=== PATIENT | female | born 1995 | race African-American/Black ===

== ENCOUNTER 2016-09-14 14:27 | Emergency (ER) | payer OTHER ==
[~2016-09-14] VITALS: Ht 165.1 cm; Wt 63.5 kg
[2016-09-14 15:38] LABS: APPEARANCE,URINE CLEAR; KETONES,URINE NEGATIVE (NEGATIVE); LEUKOCYTE ESTERASE ,URINE 3+ (NEGATIVE); NITRITE,URINE NEGATIVE (NEGATIVE); PH,URINE 7 (4.5-8.0); PROTEIN,URINE 1+ (NEGATIVE); UROBILINOGEN,URINE 1 MG/DL (0.0-1.0)
[2016-09-14 15:40] LABS: BASOPHILS % (AUTO) 0.7 % (0.0-2.0); EOSINOPHILS % (AUTO) 2.2 % (0.0-3.0); LYMPHOCYTES % (AUTO) 16.7 % (20.0-45.0); MEAN CORPUSCULAR HEMOGLOBIN 28.5 PG (27.0-31.0); MEAN CORPUSCULAR HGB CONC 31.7 G/DL (32.0-36.0); MEAN CORPUSCULAR VOLUME 90 FL (80-99); MEAN PLATELET VOLUME 8.8 FL (6.5-10.1); MONOCYTES % (AUTO) 6.5 % (1.0-10.0); NEUTROPHILS % (AUTO) 73.9 % (45.0-75.0); PLATELET COUNT 243 K/UL (150-450); RED BLOOD COUNT 4.39 M/UL (4.20-5.40); RED CELL DISTRIBUTION WIDTH 13.3 % (11.6-14.8); WHITE BLOOD COUNT 8.9 K/UL (4.8-10.8)
[2016-09-14 15:56] LABS: BACTERIA,URINE MODERATE /HPF; SQUAMOUS EPITHELIAL CELL,UR FEW /LPF (NONE/OCC)
[2016-09-14 15:57] LABS: ALANINE AMINOTRANSFERASE 15 U/L (3-33); ALBUMIN/GLOBULIN RATIO 1.1 (1.0-2.7); ANION GAP 16 (5-15); ASPARTATE AMINO TRANSFERASE 23 U/L (5-40); CALCIUM 9.6 mg/dL (8.6-10.2); CARBON DIOXIDE 25 mEQ/L (20-30); CHLORIDE 97 mEQ/L (98-107); CREATININE 0.9 mg/dL (0.5-0.9); GLOMERULAR FILTRATION RATE > 60 mL/min (>60); HEMOLYSIS 2; LIPASE 17 U/L (< 60); POTASSIUM 3.5 mEQ/L (3.4-4.9); SODIUM 138 mEQ/L (135-145); TOTAL PROTEIN 8.1 g/dL (6.6-8.7)
[2016-09-14] MEDS ORDERED: KEFLEX500 MG ORAL (16:31)
[2016-09-14] MEDS ORDERED: TYLENOL EXTRA500 MG ORAL (16:31)
[2016-09-14 16:40] VITALS: BP 122/80
--- NOTE | 2016-09-14 17:45 | Emergency Room Report ---
History of Present Illness General Chief Complaint: Abdominal Pain Source: Patient Present Illness HPI 21-year-old female presents to ED with abdominal pain. States pain started yesterday while at work. Pain was sharp, 7/10, lower abdomen. Nonradiating. She took Motrin yesterday with some pain relief. Patient denies any pain at this time. Denies any dysuria or hematuria. Denies flank pain. Denies nausea or vomiting. Denies fevers or chills. No aggravating relieving factors. Denies any other associated symptoms Allergies: Coded Allergies: No Known Allergies (Unverified , 09/14/16) Patient History Past Medical History: none Past Surgical History: none Pertinent Family History: none Social History: Denies: alcohol use, drug use, smoking Last Menstrual Period: 07/17/16 (discontinued control) Now: No Immunizations: UTD Reviewed Nursing Documentation: PMH: Agreed, PSxH: Agreed Nursing Documentation-PMH Past Medical History: No Stated History Review of Systems All Other Systems: negative except mentioned in HPI Physical Exam Vital Signs Date Time Temp Pulse Resp B/P Pulse Ox O2 Delivery O2 Flow Rate FiO2 09/14/16 14:40 98.8 114 16 117/74 98 Room Air Sp02 EP Interpretation: reviewed, normal General Appearance: no apparent distress, alert, GCS 15, non-toxic Head: normocephalic Eyes: bilateral eye PERRL, bilateral eye normal inspection ENT: normal ENT inspection Neck: normal inspection Respiratory: normal inspection Cardiovascular #1: normal inspection Gastrointestinal: tenderness - suprapubic Rectal: deferred Genitourinary: no CVA tenderness Musculoskeletal: normal inspection Neurologic: alert, oriented x3, responsive, motor strength/tone normal, sensory intact, speech normal Psychiatric: normal inspection Skin: normal inspection Lymphatic: normal inspection Medical Decision Making Diagnostic Impression: Primary Impression: UTI (urinary tract infection) Qualified Codes: N39.0 - Urinary tract infection, site not specified ER Course Hospital Course 21-year-old female presents with lower abdominal Differential diagnoses include: UTI, cystitis, pyelonephritis Clinical course Patient placed on stretcher. After initial history and physical I ordered UA, labs, IV fluids labs - no leukocytosis noted, hb/hematocrit stable, electrolytes okay, UA grossly positive Diagnosis - UTI Stable and discharged home with prescriptions for Rx Keflex, Tylenol. Followup with PMD. Return to ED if symptoms recur or worsen Labs Test 09/14/16 15:22 09/14/16 15:30 Urine Color Pale yellow Urine Appearance Clear Urine pH 7 (4.5-8.0) Urine Specific Tensed 1.010 (1.005-1.035) Urine Protein 1+ (NEGATIVE) Urine Glucose (UA) Negative (NEGATIVE) Urine Ketones Negative (NEGATIVE) Urine Occult Blood 1+ (NEGATIVE) Urine Nitrite Negative (NEGATIVE) Urine Bilirubin Negative (NEGATIVE) Urine Urobilinogen 1 MG/DL (0.0-1.0) Urine Leukocyte Esterase 3+ (NEGATIVE) Urine RBC 2-4 /HPF (0 - 2) Urine WBC 10-15 /HPF (0 - 2) Urine Squamous Epithelial Cells Few /LPF (NONE/OCC) Urine Bacteria Moderate /HPF (NONE) Urine HCG, Qualitative Negative White Blood Count 8.9 K/UL (4.8-10.8) Red Blood Count 4.39 M/UL (4.20-5.40) Hemoglobin 12.5 G/DL (12.0-16.0) Hematocrit 39.4 % (37.0-47.0) Mean Corpuscular Volume 90 FL (80-99) Mean Corpuscular Hemoglobin 28.5 PG (27.0-31.0) Mean Corpuscular Hemoglobin Concent 31.7 G/DL (32.0-36.0) Red Cell Distribution Width 13.3 % (11.6-14.8) Platelet Count 243 K/UL (150-450) Mean Platelet Volume 8.8 FL (6.5-10.1) Neutrophils (%) (Auto) 73.9 % (45.0-75.0) Lymphocytes (%) (Auto) 16.7 % (20.0-45.0) Monocytes (%) (Auto) 6.5 % (1.0-10.0) Eosinophils (%) (Auto) 2.2 % (0.0-3.0) Basophils (%) (Auto) 0.7 % (0.0-2.0) Sodium Level 138 mEQ/L (135-145) Potassium Level 3.5 mEQ/L (3.4-4.9) Chloride Level 97 mEQ/L (98-107) Carbon Dioxide Level 25 mEQ/L (20-30) Anion Gap 16 (5-15) Blood Urea Nitrogen 6 mg/dL (7-23) Creatinine 0.9 mg/dL (0.5-0.9) Estimat Glomerular Filtration Rate > 60 mL/min (>60) Glucose Level 71 mg/dL (74-106) Calcium Level 9.6 mg/dL (8.6-10.2) Total Bilirubin 0.4 mg/dL (0.0-1.2) Aspartate Amino Transf (AST/SGOT) 23 U/L (5-40) Alanine Aminotransferase (ALT/SGPT) 15 U/L (3-33) Alkaline Phosphatase 63 U/L (35-104) Total Protein 8.1 g/dL (6.6-8.7) Albumin 4.3 g/dL (3.5-5.2) Globulin 3.8 g/dL Albumin/Globulin Ratio 1.1 (1.0-2.7) Lipase 17 U/L (< 60) Last Vital Signs Date Time Temp Pulse Resp B/P Pulse Ox O2 Delivery O2 Flow Rate FiO2 09/14/16 14:40 98.8 114 16 117/74 98 Room Air Status: improved Disposition: HOME, SELF-CARE Condition: Stable Scripts Acetaminophen* (TYLENOL EXTRA STRENGTH*) 500 Mg Tablet 500 MG ORAL Q8H Y for Prn Headache/Temp > 101, #30 TAB 0 Refills Prov: CARLITO LEWIS M.D. 09/14/16 Cephalexin* (KEFLEX*) 500 Mg Capsule 500 MG ORAL Q6H, #28 CAP 0 Refills Prov: CARLITO LEWIS M.D. 09/14/16 Patient Instructions: Dysuria CARLITO LEWIS M.D. Sep 14, 2016 17:45
== END 2016-09-14 16:40 | disposition home or self-care (01) ==
LOC: EMR 15:00
DX: N39.0 Urinary tract infection, site not specified (principal)
CPT/HCPCS: 36415; 80053; 81003; 81025; 83690; 85025; 87086; 96360

== ENCOUNTER 2017-05-23 12:13 | Emergency (ER) | payer MEDICAID, OTHER ==
[~2017-05-23] VITALS: Ht 167.6 cm; Wt 65.8 kg
[~2017-05-23 12:13] MED LIST: KEFLEX500 MG ORAL; TYLENOL EXTRA500 MG ORAL
[2017-05-23] MEDS ORDERED: IBUPROFEN600 MG ORAL (12:56)
[2017-05-23] MEDS ORDERED: AMOXICILLIN500 MG ORAL (12:56)
[2017-05-23 13:10] VITALS: BP 99/67
--- NOTE | 2017-05-25 13:23 | Emergency Room Report ---
History of Present Illness General Chief Complaint: Sore Throat Source: Patient Present Illness HPI The patient is a 22-year-old female presenting for Swollen lymph node. She states that approximately one month prior, she developed sore throat and cough with subjective fever. All symptoms have resolved except for one lymph node on the right side of her neck. Pain is mild and described as a 4/10 dull ache. Does not radiate. No known provoking relieving factors. She is unsure if it has changed in size. She denies other symptoms including nausea, vomiting, night sweats, weight loss, dysphagia, odynophagia Allergies: Coded Allergies: No Known Allergies (Unverified , 09/14/16) Patient History Past Medical History: see triage record Last Menstrual Period: 05/21/17 Now: No : 0 Reviewed Nursing Documentation: PMH: Agreed, PSxH: Agreed Nursing Documentation-PMH Past Medical History: No History, Except For Hx Asthma: Yes Review of Systems All Other Systems: negative except mentioned in HPI Physical Exam Vital Signs Date Time Temp Pulse Resp B/P (MAP) Pulse Ox O2 Delivery O2 Flow Rate FiO2 05/23/17 12:43 98.6 88 18 122/71 98 Room Air Sp02 EP Interpretation: reviewed, normal General Appearance: no apparent distress, alert, GCS 15, non-toxic Head: normocephalic, atraumatic Eyes: bilateral eye normal inspection, bilateral eye PERRL ENT: hearing grossly normal, no angioedema, normal voice, TMs + canals normal, uvula midline, moist mucus membranes, pharyngeal erythema Neck: full range of motion, supple/symm/no masses Respiratory: chest non-tender, lungs clear, normal breath sounds, speaking full sentences Cardiovascular #1: regular rate, rhythm, no edema Musculoskeletal: back normal, gait/station normal, normal range of motion, non- tender Neurologic: alert, oriented x3, responsive, motor strength/tone normal, sensory intact, speech normal Psychiatric: judgement/insight normal, memory normal, mood/affect normal, no suicidal/homicidal ideation Skin: normal color, no rash, warm/dry, well hydrated Lymphatic: adenopathy - There is an isolated R enlarged lymph node. Non tender. Mobile. Approximately 4cm in diameter Medical Decision Making PA Attestation Dr. Boone is my supervising physician. Patient management was discussed with my supervising physician Diagnostic Impression: Primary Impression: Cervical lymphadenopathy ER Course The patient is a 22-year-old female presenting for Swollen lymph node Differential diagnosis include but not limited to pharyngitis, sinusitis, AOM, bronchitis, PNA, lymphadenitis, lymphoma, among others Physical exam: Vitals within normal limits. Afebrile. No apparent distress HEENT exam: There is no tonsillar edema or exudate. There is pharyngeal erythema. Uvula midline. Moist mucous membranes. TM unremarkable. EAC unremarkable There is an isolated R enlarged lymph node. Non tender. Mobile. Approximately 4cm in diameter Lungs are clear to auscultation bilaterally Skin is warm and dry. No rash The patient will be discharged home with a prescription for amoxicillin and is given ER precautions. The patient was told she is to followup with her primary doctor as soon as possible and will need further evaluation possibly including ultrasound and/or biopsy. She was told this is an urgent matter. Last Vital Signs Date Time Temp Pulse Resp B/P (MAP) Pulse Ox O2 Delivery O2 Flow Rate FiO2 05/23/17 13:10 68 16 99/67 97 Room Air 05/23/17 12:43 98.6 Status: improved Disposition: HOME, SELF-CARE Condition: Improved Scripts Amoxicillin* (AMOXIL*) 500 Mg Capsule 500 MG ORAL Q12HR, #20 CAP Prov: KATIE CHANG 05/23/17 Ibuprofen* (MOTRIN*) 600 Mg Tablet 600 MG ORAL Q8H Y for For Pain, #30 TAB 0 Refills Prov: KATIE CHANG 05/23/17 Referrals: [facility],REFERRIN (PCP) Patient Instructions: Lymphadenopathy Additional Instructions: I discussed my findings with the patient. All questions and concerns have been answered. Treatment and medication compliance have been addressed. I informed the patient that she needs to follow up with her primary doctor for further evaluation. She was told she may need ultrasound and/or biopsy. Please followup as soon as possible. KATIE CHANG May 25, 2017 13:23
== END 2017-05-23 13:10 | disposition home or self-care (01) ==
LOC: EMR 12:50
DX: R59.0 Localized enlarged lymph nodes (principal); J45.909 Unspecified asthma, uncomplicated
CPT/HCPCS: 99283

== ENCOUNTER 2017-06-07 11:15 | Emergency (ER) | payer MEDICAID, OTHER ==
[~2017-06-07] VITALS: Ht 165.1 cm; Wt 63.5 kg
[~2017-06-07 11:15] MED LIST changes: +AMOXICILLIN500 MG ORAL; +IBUPROFEN600 MG ORAL
[2017-06-07 12:56] VITALS: BP 112/63
--- NOTE | 2017-06-07 21:43 | Emergency Room Report ---
History of Present Illness General Chief Complaint: General Complaint Source: Patient Present Illness HPI The patient is a 22-year-old female presenting for continued swelling and pain of right neck. She was seen in this emergency department recently for the same complaint and told to followup with ENT for biopsy and ultrasound. She states that she did not make an attempt to followup. She was given prescription for antibiotics which ultimately did not help. Swelling has increased in size. Pain is a 6/10 dull ache it is worse with touch. Does not radiate. She denies other symptoms including sore throat, cough, night sweats, fatigue, weight loss, myalgia, rash Allergies: Coded Allergies: No Known Allergies (Unverified , 09/14/16) Patient History Past Medical History: see triage record Pertinent Family History: none Last Menstrual Period: a week ago Now: No Reviewed Nursing Documentation: PMH: Agreed, PSxH: Agreed Nursing Documentation-PMH Past Medical History: No History, Except For Hx Asthma: Yes Review of Systems All Other Systems: negative except mentioned in HPI Physical Exam Vital Signs Date Time Temp Pulse Resp B/P (MAP) Pulse Ox O2 Delivery O2 Flow Rate FiO2 06/07/17 11:34 99.3 80 14 125/71 98 Room Air Sp02 EP Interpretation: reviewed, normal General Appearance: no apparent distress, alert, GCS 15, non-toxic Head: normocephalic, atraumatic Eyes: bilateral eye normal inspection, bilateral eye PERRL ENT: hearing grossly normal, normal pharynx, no angioedema, normal voice Neck: full range of motion, no bony tend, tender lateral - R Respiratory: chest non-tender, lungs clear, normal breath sounds, speaking full sentences Cardiovascular #1: regular rate, rhythm, no edema Musculoskeletal: back normal, gait/station normal, normal range of motion, non- tender Neurologic: alert, oriented x3, responsive, motor strength/tone normal, sensory intact, speech normal Psychiatric: judgement/insight normal, memory normal, mood/affect normal, no suicidal/homicidal ideation Skin: normal color, no rash, warm/dry, well hydrated Lymphatic: adenopathy - R single enlargement of cervical chain. TTP. Mobile. 5- 6cm in diameter Medical Decision Making PA Attestation Dr. Boone is my supervising physician. Patient management was discussed with my supervising physician Diagnostic Impression: Primary Impression: Cervical lymphadenopathy ER Course The patient is a 22-year-old female presenting for continued swelling and pain of right neck. Differential diagnosis include but not limited to lymphangitis, lymphoma, pharyngitis, sinusitis, AOM PE: Afebrile. NAD R single enlargement of cervical chain. TTP. Mobile. 5-6cm in diameter otherwise exam unremarkable The patient again was urgently told to followup with ENT and/or primary doctor for further evaluation. This will need ultrasound and/or biopsy. She was told this could be malignancy. She understands. ER precautions are given Last Vital Signs Date Time Temp Pulse Resp B/P (MAP) Pulse Ox O2 Delivery O2 Flow Rate FiO2 06/07/17 12:56 99.3 77 12 112/63 99 Room Air Status: improved Disposition: HOME, SELF-CARE Condition: Improved Referrals: [facility],REFERRIN (PCP) Patient Instructions: Lymphadenopathy Additional Instructions: You were advised that this needs urgent attention. You need to have further evaluation via ultrasound and/or biopsy. Please followup with your primary doctor as soon as possible and obtain referral. KATIE CHANG Jun 07, 2017 21:43
== END 2017-06-07 12:59 | disposition home or self-care (01) ==
LOC: EMR 12:30
DX: R59.0 Localized enlarged lymph nodes (principal); J45.909 Unspecified asthma, uncomplicated
CPT/HCPCS: 99282

== ENCOUNTER 2017-12-28 06:19 | Emergency (ER) | payer MEDICAID ==
[~2017-12-28] VITALS: Ht 165.1 cm; Wt 61.2 kg
[2017-12-28 06:30] VITALS: BP 101/64
[2017-12-28] MEDS ORDERED: Pseudoephedrine 30mg tab ORAL ONE (06:30)
[2017-12-28] MEDS ORDERED: AUGMENTIN 875-1 EAC1 ORAL (06:34)
[2017-12-28] MEDS ORDERED: IBUPROFEN600 MG ORAL (06:34)
[2017-12-28] MEDS ORDERED: PSEUDOEPHEDRINE60 MG PO (06:34)
--- NOTE | 2017-12-28 06:34 | Emergency Room Report ---
History of Present Illness General Chief Complaint: Earache Source: Patient Present Illness [facility] This is a 22-year-old female with no significant past medical history. She presents with chief complaint right ear pain. She's been having a little congestion runny nose the last couple days. Woke up this morning at 4:30 with right ear pain. Worse with coughing or sneezing. No fever chills. No nausea no vomiting. Pain is 7 out of 10. No other complaint. No drainage. Allergies: Coded Allergies: No Known Allergies (Unverified , 09/14/16) Patient History Past Medical History: see triage record, old chart reviewed Past Surgical History: none Pertinent Family History: none Last Menstrual Period: Dec Now: No Immunizations: other Reviewed Nursing Documentation: PMH: Agreed; PSxH: Agreed Nursing Documentation-PMH Hx Asthma: Yes Review of Systems Eye: Denies: eye pain, blurred vision ENT: Reports: ear pain; Denies: nose congestion, throat swelling Respiratory: Denies: cough, shortness of breath Cardiovascular: Denies: chest pain, palpitations Gastrointestinal: Denies: abdominal pain, diarrhea, nausea, vomiting Musculoskeletal: Denies: back pain, joint pain Skin: Denies: rash Neurological: Denies: headache, numbness Endocrine: Denies: increased thirst, increased urine Hematologic/Lymphatic: Denies: easy bruising All Other Systems: negative except mentioned in HPI Physical Exam Vital Signs Date Time Temp Pulse Resp B/P (MAP) Pulse Ox O2 Delivery O2 Flow Rate FiO2 12/28/17 06:23 98.1 68 16 101/64 95 Room Air 98.1 vitals normal Sp02 EP Interpretation: reviewed, normal General Appearance: well appearing, no apparent distress, alert Head: normocephalic, atraumatic Eyes: bilateral eye PERRL, bilateral eye EOMI ENT: hearing grossly normal, normal pharynx, other - Right TM: Cloudy with effusion. Loss of light reflex. No perforation. Neck: full range of motion, supple, no meningismus Respiratory: chest non-tender, lungs clear, normal breath sounds Cardiovascular #1: regular rate, rhythm, no murmur Gastrointestinal: normal bowel sounds, non tender, no mass, no organomegaly, no bruit, non-distended Musculoskeletal: back normal, gait/station normal, normal range of motion Psychiatric: mood/affect normal Skin: warm/dry Medical Decision Making Diagnostic Impression: Primary Impression: Acute otitis media with effusion of right ear ER Course Patient with otitis media and effusion. No evidence of perforation. No meningitis or mastoiditis. We'll discharge home. Last Vital Signs Date Time Temp Pulse Resp B/P (MAP) Pulse Ox O2 Delivery O2 Flow Rate FiO2 12/28/17 06:23 98.1 68 16 101/64 95 Room Air 98.1 Status: improved Disposition: HOME, SELF-CARE Condition: Stable Scripts Pseudoephedrine Hcl* (SUDAFED*) 60 Mg Tablet 60 MG PO Q6H, #30 TAB Prov: OTILIO STOCKTON M.D. 12/28/17 Ibuprofen* (MOTRIN*) 600 Mg Tablet 600 MG ORAL THREE TIMES A DAY, #30 TAB 0 Refills Prov: OTILIO STOCKTON M.D. 12/28/17 Amoxicillin/Potassium Clav 875-125* (AUGMENTIN 875-125 TABLET*) 1 Each Tablet 1 TAB ORAL TWICE A DAY, #14 TAB Prov: OTILIO STOCKTON M.D. 12/28/17 Patient Instructions: Otitis Media, Adult, [id number] Additional Instructions: Follow-up with your doctor in 2-3 days for recheck of not better. Return of worse. OTILIO STOCKTON M.D. Dec 28, 2017 06:34
[2017-12-28 06:38] VITALS: BP 0/0
== END 2017-12-28 06:38 | disposition home or self-care (01) ==
LOC: EMR 06:29
DX: H65.191 Other acute nonsuppurative otitis media, right ear (principal)
CPT/HCPCS: 99283

== ENCOUNTER 2019-05-04 09:38 | Emergency (ER) | payer MEDICAID ==
[~2019-05-04] VITALS: Ht 165.1 cm; Wt 79.4 kg
[~2019-05-04 09:38] MED LIST changes: +AUGMENTIN 875-1 EAC1 ORAL; +PSEUDOEPHEDRINE60 MG PO
[2019-05-04 09:57] VITALS: BP 109/72
[2019-05-04] MEDS ORDERED: Lidocaine 2% Visc 15ml soln ORAL ONE (10:00)
--- NOTE | 2019-05-04 10:00 | Emergency Room Report ---
History of Present Illness General Chief Complaint: Sore Throat Source: Patient Present Illness HPI Patient is a 24-year-old female presents after increased sore throat. She reports having recurrent tonsillar infections. She had prior history of asthma. She denies any cough or difficulty with breathing. She had moderate sore throat as well as difficulty with swallowing. She states she is been on antibiotics fairly frequently and has previously had some similar symptoms in the past. She denies any other current complaints. Allergies: Coded Allergies: No Known Allergies (Unverified , 09/14/16) Patient History Past Medical History: see triage record Last Menstrual Period: depo shot Now: No Reviewed Nursing Documentation: PMH: Agreed; PSxH: Agreed Nursing Documentation-PMH Past Medical History: No History, Except For Hx Asthma: Yes Review of Systems All Other Systems: negative except mentioned in HPI Physical Exam Vital Signs Date Time Temp Pulse Resp B/P (MAP) Pulse Ox O2 Delivery O2 Flow Rate FiO2 05/04/19 09:43 99.1 104 20 117/69 (85) 96 Room Air General Appearance: well appearing, no apparent distress, alert, GCS 15 Head: normocephalic, atraumatic ENT: hearing grossly normal, normal voice, tonsillar swelling, tonsillar exudate Neck: full range of motion, supple Respiratory: lungs clear, no respiratory distress, speaking full sentences Cardiovascular #1: normal inspection, regular rate, rhythm Gastrointestinal: normal inspection Musculoskeletal: normal inspection, swelling Neurologic: alert, motor strength/tone normal, art specialist III-XII nml as tested, EOM palsy, oriented x3, normal gait Psychiatric: normal inspection, mood/affect normal Skin: no rash Medical Decision Making Diagnostic Impression: Primary Impression: Exudative pharyngitis ER Course Patient presented for sore throat. Differential diagnosis includes not limited to peritonsillar abscess, exudative pharyngitis, viral pharyngitis among others. Patient has a benign exam and does not appear to require any imaging or laboratory testing at this time. Patient has exam and history consistent with a exudative pharyngitis. Patient will be given prescription for oral antibiotics. Patient was advised to follow-up with her primary care physician for ENT referral as well as to have recheck in 1 to 2 days. She is to return if worse. She is given prescription for oral pain medications the patient is advised to follow up with primary care doctor in 1-2 days. Patient is advised to return if any worsening condition or if any changes in status that are concerning. This report is dictated with [employer] boat diesel motor mechanic software which may occasionally lead to discrepancies related to use of this software. Last Vital Signs Date Time Temp Pulse Resp B/P (MAP) Pulse Ox O2 Delivery O2 Flow Rate FiO2 05/04/19 09:43 99.1 104 20 117/69 (85) 96 Room Air Status: improved Disposition: HOME, SELF-CARE Condition: Stable Scripts Ibuprofen* (MOTRIN*) 600 Mg Tablet 600 MG ORAL Q6H PRN for For Pain, #30 TAB 0 Refills Prov: Niles Saldivar MD 05/04/19 Lidocaine HCl 2% Viscous (Lidocaine HCl 2% Viscous) 100 Ml Solution 15 ML ORAL QID, #100 ML Prov: Niles Saldivar MD 05/04/19 Amoxicillin/Potassium Clav 875-125* (AUGMENTIN 875-125 TABLET*) 1 Each Tablet 1 TAB ORAL TWICE A DAY, #14 TAB Prov: Niles Saldivar MD 05/04/19 Niles Saldivar MD May 04, 2019 10:00
[2019-05-04] MEDS ORDERED: AUGMENTIN 875-1 EAC1 ORAL (10:02)
[2019-05-04] MEDS ORDERED: IBUPROFEN600 MG ORAL (10:02)
[2019-05-04] MEDS ORDERED: LIDOCAINE VISC100 ML ORAL (10:02)
[2019-05-04 10:08] VITALS: BP 107/84
== END 2019-05-04 10:06 | disposition home or self-care (01) ==
LOC: EMR 10:00
DX: J02.9 Acute pharyngitis, unspecified (principal)
CPT/HCPCS: 99282

== ENCOUNTER 2019-09-28 11:32 | Emergency (ER) | payer SELFPAY ==
[~2019-09-28] VITALS: Ht 165.1 cm; Wt 79.4 kg
[~2019-09-28 11:32] MED LIST changes: +LIDOCAINE VISC100 ML ORAL
[2019-09-28 11:49] VITALS: BP 105/59
--- NOTE | 2019-09-28 11:50 | NUR ---
ED Nurse Note:pt. came with stye in right eye for 1 week ,no visual disturbances
[2019-09-28] MEDS ORDERED: ERYTHROMYCIN3.5 GM RIGHT EYE (12:07)
--- NOTE | 2019-09-28 12:12 | NUR ---
ER DISCHARGE NOTE: Patient is cleared to be discharged per ERMD, pt is aox4, on room air, with stable vital signs. pt was given dc and prescription instructions, pt was able to verbalize understanding, pt is able to ambulate with steady gait. pt took all belongings.
--- NOTE | 2019-09-28 14:25 | Emergency Room Report ---
History of Present Illness General Chief Complaint: Eye Problems Source: Patient Present Illness HPI 24-year-old female presents ED with swelling to right eyelid. X1 week. Dull, 3 out of 10, nonradiating. Denies any discharge. Denies any change in visual acuity. Denies any fevers or chills. No other aggravating relieving factors. Denies any other associated symptoms Allergies: Coded Allergies: No Known Allergies (Unverified , 09/14/16) COVID-19 Screening Contact w/high risk pt: No Recent Travel to affected area: No Experienced COVID-19 symptoms?: No Patient History Past Medical History: none Past Surgical History: none Pertinent Family History: none Social History: Denies: smoking, alcohol use, drug use Last Menstrual Period: na Now: No Immunizations: UTD Reviewed Nursing Documentation: PMH: Agreed; PSxH: Agreed Nursing Documentation-PMH Past Medical History: No History, Except For Hx Asthma: Yes Review of Systems All Other Systems: negative except mentioned in HPI Physical Exam Vital Signs Date Time Temp Pulse Resp B/P (MAP) Pulse Ox O2 Delivery O2 Flow Rate FiO2 09/28/19 11:43 98.4 76 18 105/59 (74) 98 Room Air Sp02 EP Interpretation: reviewed, normal General Appearance: no apparent distress, alert, GCS 15, non-toxic Head: normocephalic, atraumatic Eyes: right eye lid inflammation; bilateral eye normal inspection, bilateral eye PERRL, bilateral eye EOMI ENT: normal ENT inspection Neck: normal inspection Respiratory: normal inspection Cardiovascular #1: normal inspection Gastrointestinal: normal inspection Rectal: deferred Genitourinary: no CVA tenderness Musculoskeletal: normal inspection Neurologic: alert, motor strength/tone normal, oriented x3, sensory intact, responsive, speech normal Psychiatric: normal inspection Skin: no rash Lymphatic: normal inspection Medical Decision Making Diagnostic Impression: Primary Impression: Stye Qualified Codes: H00.011 - Hordeolum externum right upper eyelid ER Course Hospital Course 24-year-old female presents to ED with R eyelid pain/swelling Differential diagnoses include: conjunctivitis, traumatic iritis, foreign body, corneal abrasion Clinical course Patient placed on stretcher. After initial history reveals female in no acute distress. There is erythema and swelling to the right upper eyelid. No discharge. No ocular involvement. Consistent with stye. Discussed findings with patient. Recommend warm compresses. Will prescribe topical antibiotic. Safe for discharge close outpatient follow-up. I will provide optho referrals Diagnosis - stye Stable and discharged to home with prescription for erythromycin ointment. warm compresses. Followup with PMD/Optho. Return to ED if symptoms recur or worsen Last Vital Signs Date Time Temp Pulse Resp B/P (MAP) Pulse Ox O2 Delivery O2 Flow Rate FiO2 09/28/19 12:13 98.4 78 18 105/59 98 Room Air Status: improved Disposition: HOME, SELF-CARE Condition: Stable Scripts Erythromycin Base (ERYTHROMYCIN*) 3.5 Gm Oint...g. 1 APPLIC RIGHT EYE QID for 7 Days, #3.5 GM 0 Refills Prov: Derrell Gonzalez MD 09/28/19 Referrals: Jorge A Chan MD, Maziar M.D. MD NOT CHOSEN [facility]/,REFERRING (PCP) Patient Instructions: Stye Additional Instructions: apply to right eyelid at border to eyelashes. followup with eye doctor if symptoms do not improve Derrell Gonzalez MD September 28, 2019 14:25
== END 2019-09-28 12:15 | disposition home or self-care (01) ==
LOC: EMR 12:00
DX: H00.011 Hordeolum externum right upper eyelid (principal)
CPT/HCPCS: 99282